=== PATIENT | male | born 1965 | race Caucasian/White ===

== ENCOUNTER 2019-06-05 11:16 | Emergency (ER) | payer OTHER ==
[~2019-06-05] VITALS: Ht 180.3 cm; Wt 172.4 kg
[2019-06-05 12:06] LABS: CALCIUM 8.5 mg/dL (8.5-10.1); POTASSIUM 3.9 mmol/L (3.5-5.1)
[2019-06-05 12:08] LABS: ABSOLUTE NEUTROPHILS 9.1 thou/uL (1.4-8.2); BASOPHILS 0.5 % (0.0-2.0); HEMATOCRIT 46.5 % (42.0-52.0); HEMOGLOBIN 15.8 gm/dL (14.0-18.0); LYMPHOCYTES 9.7 % (24.0-44.0); MCH 33.4 pg (26.0-34.0); MCV 98.2 fL (80.0-100.0); MONOCYTES 5.8 % (1.0-8.0); PLATELET COUNT 311 thou/uL (150-400); RBC 4.73 mil/uL (4.50-6.00); RDW 12.7 % (10.5-14.5); WBC 11.4 thou/uL (4.0-11.0)
[2019-06-05 12:12] LABS: ALBUMIN 3.4 g/dL (3.4-5.0); DIRECT BILIRUBIN 0.2 mg/dL (<0.1-0.2); TOTAL PROTEIN 7.7 g/dL (6.4-8.2)
[2019-06-05] MEDS ORDERED: PROAIR HFA8.5 GM INH (12:23)
[2019-06-05] MEDS ORDERED: LASIX 40 MG TAB40 MG PO ×2 (15:46→15:51)
[2019-06-05] MEDS ORDERED: BACTRIM DS TAB1 EACH PO ×2 (15:46→15:51)
[2019-06-05 16:10] VITALS: BP 151/78
== END 2019-06-05 16:10 | disposition home or self-care (01) ==
LOC: ER 11:16
PROVIDERS: Emergency Medicine
DX: I89.0 Lymphedema, not elsewhere classified (principal); L03.116 Cellulitis of left lower limb; L03.115 Cellulitis of right lower limb; I10 Essential (primary) hypertension; E78.5 Hyperlipidemia, unspecified; J45.909 Unspecified asthma, uncomplicated; Z79.899 Other long term (current) drug therapy

== ENCOUNTER 2019-06-07 16:39 | Inpatient (IN) | payer OTHER ==
[~2019-06-07] VITALS: Ht 180.3 cm; Wt 183.3 kg
--- NOTE | ~2019-06-07 | HC ---
[facility] [place] [address] CONSULTATION Name: JOVANNY SPIVEY Room #: 444-P [facility] IN M.R.#: [id number] Admission: 06/07/19 Attend Phys: Kevin Ridley MD Discharge: 06/10/19 Date of : 67 Report #: [id number] THIS REPORT FOR: cc: BHAVNA - No family physician/PCP BHAVNA - No family physician/PCP Hernandez Khoury MD ~ CC: Kevin Ridley [facility] physician/PCP DATE OF SERVICE: 06/09/2019 CHIEF COMPLAINT: Bilateral lower extremity edema with bullae on the right foot. HISTORY OF PRESENT ILLNESS: This is a 54-year-old male patient admitted to the hospital with blistering and cellulitis to bilateral lower extremities. He was treated with intravenous antibiotic therapy, has been here for a couple of days. I have been asked to see him with regard to this. PAST MEDICAL HISTORY: Significant for hypertension, asthma, and hyperlipidemia. SOCIAL HISTORY: The patient admits to occasional alcohol use. Chews tobacco. FAMILY HISTORY: Noncontributory. MEDICATIONS: Includes Lasix, Bactrim, and albuterol. ALLERGIES: No known drug allergies. REVIEW OF SYSTEMS: CONSTITUTIONAL: The patient denies fever, chills, or weight loss. NEUROLOGICAL: The patient denies focal weakness, numbness or tingling. EYES: The patient denies visual changes, redness, or drainage. ENT: The patient denies earache, nasal drainage, or sore throat. CARDIOVASCULAR: The patient denies chest pain, palpitations or diaphoresis. PULMONARY: The patient denies cough or sore throat. GASTROINTESTINAL: The patient denies nausea, vomiting, diarrhea or abdominal pain. ORTHOPEDIC: The patient complains of pain, swelling and blistering of the right lower extremity. Other systems in a 14-point review of systems are negative. PHYSICAL EXAMINATION: VITAL SIGNS: At this time include temperature 36.9, pulse 88, respiratory rate 18, blood pressure 164/86. GENERAL: This is a well-developed male patient who appears to be in no distress. [address] [address] CONSULTATION Name: JOVANNY SPIVEY Room #: 444-P [facility] IN M.R.#: [id number] Admission: 06/07/19 Attend Phys: Kevin Ridley MD Discharge: 06/10/19 Date of : 67 Report #: [id number] HEENT: Head normocephalic. Nose and throat are clear. NECK: Supple. LUNGS: Clear. HEART: ___. ABDOMEN: Soft. Bowel sounds are present. Examination of the abdomen is obese, nontender. EXTREMITIES: Lower extremities demonstrate erythema and 3+ edema bilaterally. There are multiple bullae on the dorsal aspect of the right foot. They are all intact and not appear to be abscessed at this time. LABORATORY DATA: Include white blood cell count of 8.4 with hemoglobin of 16.1. Sodium 138, potassium 3.7, chloride 101, CO2 of 30, BUN 14, creatinine 1.3, glucose of 131. Albumin is 3.2. CLINICAL IMPRESSION: 1. Cellulitis, bilateral lower extremities and feet, right greater than left. 2. Lymphedema, bilateral lower extremities 3. Multiple bullae on the right foot. 4. Morbid obesity. 5. Hyperglycemia. RECOMMENDATIONS: We will consult occupational therapy for MLD and compression bandaging, Xeroform, ABD to the bullae, 0.1 triamcinolone cream to the areas of pruritus on the right lower leg, AmLactin dry skin nutrition. I appreciate being asked to see him in consultation. By: 49 48 Hernandez Khoury MD /nt
[~2019-06-07 16:39] MED LIST: BACTRIM DS TAB1 EACH PO; LASIX 40 MG TAB40 MG PO; PROAIR HFA8.5 GM INH
[2019-06-07 16:49] VITALS: BP 145/85
--- NOTE | 2019-06-07 18:13 | NUR ---
LAB CALLED FOR BLOOD COLLECTION
[2019-06-07 18:47] LABS: BASOPHILS 0.8 % (0.0-2.0); EOSINOPHILS 5.1 % (0.0-3.0); HEMOGLOBIN 15.6 gm/dL (14.0-18.0); LYMPHOCYTES 14.1 % (24.0-44.0); MCH 33.5 pg (26.0-34.0); MCHC 33.9 g/dL (28.0-37.0); MCV 98.8 fL (80.0-100.0); MONOCYTES 7.5 % (1.0-8.0); PLATELET COUNT 278 thou/uL (150-400); POLYS 72.5 % (36.0-66.0); RBC 4.65 mil/uL (4.50-6.00); RDW 12.6 % (10.5-14.5); WBC 9.7 thou/uL (4.0-11.0)
[2019-06-07 19:48] LABS: CALCIUM 8.3 mg/dL (8.5-10.1); CREATININE 1.3 mg/dL (0.7-1.3); POTASSIUM 3.6 mmol/L (3.5-5.1)
[2019-06-07 19:54] LABS: ALBUMIN 3.3 g/dL (3.4-5.0); DIRECT BILIRUBIN 0.1 mg/dL (<0.1-0.2); TOTAL PROTEIN 7.3 g/dL (6.4-8.2)
[2019-06-07 21:14] VITALS: BP 145/85
[2019-06-07 21:46] VITALS: BP 137/86
[2019-06-07 22:40] LABS: CHOLESTEROL 148 mg/dL (<200); HDL CHOLESTEROL 22 mg/dL (>40); LDL CHOLESTEROL 102 mg/dL (<100); SERUM ASSESSMENT Clear; TC:HDL 6.7 Ratio (Not establshd); TRIGLYCERIDE 122 mg/dL (<150); VLDL 24 mg/dL (<40)
--- NOTE | 2019-06-07 22:42 | NUR ---
Pt. admitted from the emergency room accompanied by staff. He is alert and oriented and offers no complaints at this time. Admission assessment and history is completed. Admitted with bilateral lower leg cellulitis.
[2019-06-08 05:03] VITALS: BP 156/92
[2019-06-08 07:15] VITALS: BP 148/85
[2019-06-08 08:37] LABS: HEMATOCRIT 47.4 % (42.0-52.0); HEMOGLOBIN 16.1 gm/dL (14.0-18.0); MCH 33.6 pg (26.0-34.0); MCHC 33.9 g/dL (28.0-37.0); MCV 99.1 fL (80.0-100.0); RBC 4.78 mil/uL (4.50-6.00); RDW 12.7 % (10.5-14.5); WBC 8.4 thou/uL (4.0-11.0)
[2019-06-08 08:49] LABS: ANION GAP 6 mmol/L (7-16); BUN 15 mg/dL (7-18); CALCIUM 8.3 mg/dL (8.5-10.1); CHLORIDE 98 mmol/L (98-107); CO2 30 mmol/L (21-32); CREATININE 1.3 mg/dL (0.7-1.3); GLUCOSE 98 mg/dL (74-106); POTASSIUM 3.8 mmol/L (3.5-5.1); SODIUM 134 mmol/L (136-145)
--- NOTE | 2019-06-08 10:17 | NUR ---
RD consult received. Pt with BMI 56.4, class III extreme obesity. Admitted with bilateral lower extremity cellulitis. HDL 22, LDL 102. Pt started on heart healthy diet. Upon visit, pt showing lack interest in conversation. Appetite is good and voiced no questions regarding diet. Low nutrition risk
--- NOTE | 2019-06-08 12:13 | NUR ---
PT ADMITTED RELATED TO CELLULITS LOWER LEGS. CM REVIEWED CHART AND SPOKE WITH CARE TEAM. CM CALLED AND SPOKE WITH PT THIS DAY. PT APPEARED TO BE A&O X4. CM ROLE INTRODUCED. PT INDICATED HE HAD BEEN STAYING IN AN EXTENDED STAY HOTEL POST ANESTHESIA CARE UNIT NURSE. PT INIDCATED HE HAD BEEN INDEPENDENT WITH GAIT AND ADLS POST ANESTHESIA CARE UNIT NURSE. PT INDICATED HE HAD BEEN WORKING BUT HE ISN'T CURRENTLY DUE TO COVID-19. PT HAS NO INSURANCE AND IS CURRENTLY PATIENT PAY. PT INDICATED NO HH OR OP THRAPY HISTORY. PT INDICATED HIS PCP IS DR. BALLESTEROS IN [place]. PT INDICATED HE PLANS TO RETURN TO THE EXTENDED STAY HOTEL UPON DC. PT STATED HE WOULD NEED ANY NEW SCRIPTS PRICES OUT PRIOR TO DISHARGE TO SEE IF HE CAN AFFORD MEDS. CM TO FOLLOW INDICATED WITH DC PLANNING.
[2019-06-08 13:30] LABS: TROPONIN-I <0.06 ng/mL (<0.06)
[2019-06-08 15:36] VITALS: BP 126/76
[2019-06-08 18:32] LABS: URINE BILIRUBIN NEGATIVE (Negative); URINE BLOOD NEGATIVE (Negative); URINE CLARITY CLEAR; URINE COLOR YELLOW; URINE GLUCOSE-RANDOM* NEGATIVE (Negative); URINE KETONES NEGATIVE (Negative); URINE LEUKOCYTES-REFLEX NEGATIVE (Negative); URINE NITRITE-REFLEX NEGATIVE (Negative); URINE PROTEIN (DIPSTICK) NEGATIVE (Negative); URINE SPECIFIC GRAVITY <= 1.005 (1.005-1.035); URINE UROBILINOGEN 0.2 E.U./dl (0.2-1.0)
[2019-06-08 19:06] VITALS: BP 150/72
--- NOTE | 2019-06-08 19:07 | NUR ---
PT A&OX4. AMBULATES SELF IN ROOM. BILAT LOWER EXTREMITIES HAS CELLULITIS WITH GROSS EDMA. IV INTACT IN L CHEST. NO C/O PAIN THROGHOUT THE DAY. STATES NO NEED TO COTACT FAMILY HE IS IN CONTACT WITH THEM.
--- NOTE | 2019-06-09 03:48 | NUR ---
RECIEVED CARE OF THIS PAITENT AT 1900. PATIENT SLEPT IN CHAIR. PAIN AT A 2/10. HAS SORES AND BLISTERS ALL OVER ALL EXT. LOWER EXT HAS 3+ EDEMA. IV IN L BREAST. UP AD ZAIDA. SLEPT MOST OF NIGHT.
[2019-06-09 04:05] VITALS: BP 137/72
[2019-06-09 05:47] LABS: ALBUMIN 3.2 g/dL (3.4-5.0); CALCIUM 8.3 mg/dL (8.5-10.1); CREATININE 1.3 mg/dL (0.7-1.3); MAGNESIUM 2.3 mg/dL (1.8-2.4); POTASSIUM 3.7 mmol/L (3.5-5.1); TOTAL BILIRUBIN 0.6 mg/dL (<0.1-1.0); TOTAL PROTEIN 7.4 g/dL (6.4-8.2)
[2019-06-09 07:14] VITALS: BP 151/72
--- NOTE | 2019-06-09 08:42 | 2DMMODE ---
[facility] [place] [address] 2 D/M-MODE ECHOCARDIOGRAM Name: JOVANNY SPIVEY Room #: 444-P ADM IN M.R.#: [id number] Admission: 06/07/19 Attend Phys: Kevin Ridley MD Discharge: Date of : 67 Report #: [id number] THIS REPORT FOR: cc: FAM - No family physician/PCP FAM - No family physician/PCP Avery Simms MD [facility] ~ APPROVED REPORT Study performed: 06/09/2019 07:55:20 EXAM: Comprehensive 2D, Doppler, and color-flow Echocardiogram Patient Location: Bedside Room #: 444 Status: routine BSA: 2.84 HR: 76 bpm BP: 137/72 mmHg Rhythm: NSR Other Information Study Quality: Fair/Poor parasternal window Technically limited study due to morbid obesity. Indications Bilateral leg swelling (Cellulitis) Hx: HTN, HLP. 2D Dimensions RVDd: 38.53 mm IVSd: 14.00 (7-11mm) LVDd: 46.20 mm PWd: 14.00 (7-11mm) LVDs: 34.88 (25-40mm) Volumes Left Atrial Volume (Systole) Single Plane 4CH: 47.57 mL Single Plane 2CH: 84.05 mL LA ESV Index: 25.00 mL/m2 Aortic Valve AoV Peak Zachary.: 1.69 m/s AO Peak Gr.: 11.42 mmHg LVOT Max P.76 mmHg LVOT Max V: 1.30 m/s [facility] [address] [place] [address] 2 D/M-MODE ECHOCARDIOGRAM Name: JOVANNY SPIVEY Room #: 444-P ADM IN ..#: [id number] Admission: 06/07/19 Attend Phys: Kevin Ridley MD Discharge: Date of : 67 Report #: [id number] Mitral Valve E/A Ratio: 0.9 MV Decel. Time: 279.09 ms MV E Max Zachary.: 0.69 m/s MV A Zachary.: 0.78 m/s MV PHT: 80.94 ms IVRT: 72.66 ms Pulmonary Valve PV Peak Zachary.: 1.02 m/s PV Peak Gr.: 4.13 mmHg Tricuspid Valve RAP Estimate: 5.00 mmHg Left Ventricle The left ventricle is normal size. LV wall motion is grossly normal. Mild concentric left ventricular hypertrophy. Left ventricular systolic function is normal. LVEF is 60-65%. Mild diastolic dysfunction is present (impaired relaxation pattern). Right Ventricle Right ventricle is not well visualized. Atria The left atrium size is normal. The right atrium size is normal. Aortic Valve The aortic valve is not well visualized. No aortic regurgitation is present. There is no aortic valvular stenosis. Mitral Valve The mitral valve is normal in structure. There is no mitral valve regurgitation noted. No evidence of mitral valve stenosis. Tricuspid Valve Tricuspid valve is not well visualized. Unable to detect tricuspid regurgitation. Unable to assess PA pressure. Pulmonic Valve Pulmonic valve is not well visualized. Great Vessels The aortic root is not well visualized. Ascending aorta is not well visualized. IVC is normal in size and collapses >50% with [facility] [address] [place] [address] 2 D/M-MODE ECHOCARDIOGRAM Name: JOVANNY SPIVEY Room #: 444-P [facility] IN [facility]#: [id number] Admission: 06/07/19 Attend Phys: Kevin Ridley MD Discharge: Date of : 67 Report #: [id number] inspiration. Pericardium There is no pericardial effusion. <Conclusion> Technically difficult study Left ventricular systolic function is normal. LV wall motion is grossly normal. LVEF is 60-65%. Mild diastolic dysfunction The aortic valve is not well visualized. No aortic regurgitation or stenosis. The mitral valve is normal in structure. No mitral valve regurgitation. Unable to assess pulmonary artery pressure. There is no pericardial effusion. <ELECTRONICALLY SIGNED> By: Avery Simms MD, [facility] 06/09/19839 9 9 Avery Simms MD, FACC /INF
[2019-06-09 15:42] VITALS: BP 145/83
--- NOTE | 2019-06-09 19:03 | NUR ---
VSS-AFEBRILE. LUNGS CLEAR-ROOM AIR. C/O BURNING AND SHARP PAIN WITH BILATERAL LOWER EXTREMITIES. PAIN IS PARTIALLY RELIEVED WITH IV PAIN MEDICATIONS. NEW IV PLACED IN LEFT FA-TOLERATED INSERTION WELL. LYMPHADEMA WRAPS IN PLACE-TOLERATED PLACEMENT WELL. CALL APPROPRIATELY FOR ANY NEEDED ASSISTANCE.
[2019-06-09 20:03] VITALS: BP 136/65
--- NOTE | 2019-06-10 04:46 | NUR ---
Assumed pt care at 1900. Pt's A/OX4, VSS.Up ad luca in room w/o any difficulties. Medicated for pain with Morphine with relief reported. Lymphedema wraps in place to BLE. This morning pt c/o feeling itchy underneath dressings so bad, order obtained for Benadryl ordered X1 and administered awaiting effectiveness. Sitting up on the cahair w/o any distress, will continue to monitor pt.
[2019-06-10 05:20] VITALS: BP 129/79
[2019-06-10 07:20] VITALS: BP 141/80
[2019-06-10] MEDS ORDERED: TRIAMCINOLONE A15 G3 TOP (12:07)
[2019-06-10] MEDS ORDERED: ALPRAZOLAM 0.50.5 M1 PO (12:07)
[2019-06-10] MEDS ORDERED: LIPITOR40 MG PO (12:07)
[2019-06-10] MEDS ORDERED: ACETAMINOPHEN325 M1 PO (12:07)
[2019-06-10] MEDS ORDERED: AMMONIUM LACTA226 GM TOP (12:07)
[2019-06-10] MEDS ORDERED: LASIX 40 MG TAB40 M2 PO (12:07)
[2019-06-10] MEDS ORDERED: NORCO 5-325 TA1 EAC2 PO (12:07)
[2019-06-10] MEDS ORDERED: BACTRIM DS TAB1 EAC1 PO (12:07)
[2019-06-10 12:42] VITALS: BP 141/80
--- NOTE | 2019-06-10 14:10 | NUR ---
Assumed care of pt at 0700. Pt a&ox4. Up ad luca. Legs wrapped by lymphedema tech. Denies pain. Pt will discharge to home. Pt's scripts send to hospital pharmacy. Call light within reach. Will continue to monitor.
[2019-06-10 15:13] VITALS: BP 164/86
[2019-06-10 16:18] VITALS: BP 141/80
--- NOTE | 2019-06-10 16:20 | NUR ---
PT NEEDING LYMPHEDEMA THERAPY UPON DC. CM SENT REFERRALS TO [facility], [facility], [facility], AND [facility] AND NONE CAN OFFER AVA VISITS FOR LYMPHADEMA OR AVA VISITS AT ALL. CM SENT REFERRAL TO [facility] TO SEE IF THEY COULD PROVIDE SOME AVA NURSING VISITS. CM AWAITING RESPONSE. PT'S MEDS TO BE VOUCHERED AT OP PHARMACY FOR $42.04. PT IS TO DISCHARGE BACK TO HIS EXTENDED STAY HOTEL AT [address] [place]. CM TO REACH OUT TO OP THERAPY DEPARTMENT HERE AT [facility] TO SE IF PT CAN COME ON OP BASIS FOR SERVICES ONCE THEY PARTIALLY OPEN NEXT WEEK. [facility] CAN'T ACCEPT.
== END 2019-06-10 17:38 | disposition home health service (06) | DRG 602 ==
LOC: ER 16:39 → EROBS 20:27 → 4S 20:27
PROVIDERS: Emergency Medicine; Internal Medicine; Nurse Practitioner Family; ADMIT Hospitalist
DX: L03.115 Cellulitis of right lower limb (principal); I50.33 Acute on chronic diastolic (congestive) heart failure; Z68.43 Body mass index [BMI] 50.0-59.9, adult; L03.116 Cellulitis of left lower limb; J45.909 Unspecified asthma, uncomplicated; E78.5 Hyperlipidemia, unspecified; R23.8 Other skin changes; E66.01 Morbid (severe) obesity due to excess calories; I11.0 Hypertensive heart disease with heart failure; R73.9 Hyperglycemia, unspecified; F17.210 Nicotine dependence, cigarettes, uncomplicated; S90.822A Blister (nonthermal), left foot, initial encounter; S90.821A Blister (nonthermal), right foot, initial encounter; X58.XXXA Exposure to other specified factors, initial encounter; Y93.89 Activity, other specified; Y92.89 Other specified places as the place of occurrence of the external cause; Y99.8 Other external cause status; G62.9 Polyneuropathy, unspecified; Z91.19 Patient's noncompliance with other medical treatment and regimen
CPT/HCPCS: 10195

== ENCOUNTER 2020-03-13 20:34 | Emergency (ER) | payer OTHER ==
[~2020-03-13] VITALS: Ht 180.3 cm; Wt 181.4 kg
[~2020-03-13 20:34] MED LIST changes: +ACETAMINOPHEN325 M1 PO; +ALPRAZOLAM 0.50.5 M1 PO; +AMMONIUM LACTA226 GM TOP; +BACTRIM DS TAB1 EAC1 PO; +LASIX 40 MG TAB40 M2 PO; +LIPITOR40 MG PO; +NORCO 5-325 TA1 EAC2 PO; +TRIAMCINOLONE A15 G3 TOP
[2020-03-13 21:05] LABS: ABSOLUTE NEUTROPHILS 7.8 thou/uL (1.4-8.2); BASOPHILS 0.5 % (0.0-2.0); HEMATOCRIT 45.4 % (42.0-52.0); HEMOGLOBIN 15.7 gm/dL (14.0-18.0); LYMPHOCYTES 9.1 % (24.0-44.0); MCH 33.9 pg (26.0-34.0); MCHC 34.7 g/dL (28.0-37.0); MCV 97.8 fL (80.0-100.0); MONOCYTES 6.8 % (1.0-8.0); PLATELET COUNT 307 thou/uL (150-400); POLYS 79.6 % (36.0-66.0); RBC 4.64 mil/uL (4.50-6.00); RDW 12.9 % (10.5-14.5); WBC 9.8 thou/uL (4.0-11.0)
[2020-03-13 21:11] LABS: BE(vivo) 2.8 mmol/L (-2 to +3); HCO3 21.7 mmol/L (22.0-26.0); PCO2 21.8 mmHg (35.0-45.0); PO2 100.7 mmHg (80.0-100.0); sO2 98.5 % (92.0-98.0)
[2020-03-13 21:12] LABS: pH 7.615 (7.360-7.450)
[2020-03-13 21:18] LABS: ANION GAP 14 mmol/L (7-16); BUN 19 mg/dL (7-18); CALCIUM 9.1 mg/dL (8.5-10.1); CHLORIDE 101 mmol/L (98-107); CO2 23 mmol/L (21-32); CREATININE 1.6 mg/dL (0.7-1.3); GLUCOSE 133 mg/dL (74-106); POTASSIUM 4.4 mmol/L (3.5-5.1); SODIUM 138 mmol/L (136-145)
[2020-03-13 21:26] LABS: ALBUMIN 3.5 g/dL (3.4-5.0); SGOT 29 U/L (15-37); SGPT 40 U/L (30-65); TOTAL BILIRUBIN 0.6 mg/dL (0.2-1.0); TROPONIN-I <0.06 ng/mL (<0.06)
[2020-03-14] MEDS ORDERED: AZITHROMYCIN 2250 MG PO (05:12)
[2020-03-14 05:52] VITALS: BP 101/48
--- NOTE | 2020-03-14 07:27 | EKG ---
[place] [address] [facility] [place] [address] ELECTROCARDIOGRAM REPORT Name: JOVANNY SPIVEY Room #: [facility] S[facility] Duenas#: [id number] Admission: 03/13/20 Attend Phys: Discharge: 03/14/20 Date of : 67 Report #: [id number] [facility] ED Test Date: 2020-03-13 Test Time: 20:48:23 Pat Name: JOVANNY SPIVEY Department: Room: Gender: M Motion Picture Cameraman: qamar : 1965 Requested By: Jamila Parks Order Number: [id number] MD: Garo Gutierrez Measurements Intervals [place] Rate: 110 P: 66 PA: 158 QRS: 83 QRSD: 105 T: 58 QT: 358 QTc: 485 Interpretive Statements Sinus tachycardia Low voltage, precordial leads Borderline prolonged QT interval Baseline wander in lead(s) V2 Compared to ECG 07/26/2001 19:51:18 Low QRS voltage now present T-wave abnormality no longer present Possible ischemia no longer present Electronically Signed On 03-14-2020 7:27:06 [employer] MANAGER by Garo Gutierrez [email or web address] <ELECTRONICALLY SIGNED> By: Garo Gutierrez MD, [facility] 03/14/20 0727 47 47 Garo Gutierrez MD, [facility] /[facility]
== END 2020-03-14 05:57 | disposition home or self-care (01) ==
LOC: ER 20:34
PROVIDERS: Physician Assistant
DX: J18.9 Pneumonia, unspecified organism (principal); I10 Essential (primary) hypertension; J45.909 Unspecified asthma, uncomplicated; E78.5 Hyperlipidemia, unspecified; Z79.899 Other long term (current) drug therapy; Z20.828 Contact with and (suspected) exposure to other viral communicable diseases

== ENCOUNTER 2020-03-19 22:22 | Inpatient (IN) | payer OTHER ==
[~2020-03-19] VITALS: Ht 180.3 cm; Wt 181.4 kg
[~2020-03-19 22:22] MED LIST changes: +AZITHROMYCIN 2250 MG PO
[2020-03-19 22:23] VITALS: BP 140/82
[2020-03-19 23:14] LABS: ABSOLUTE NEUTROPHILS 10.7 thou/uL (1.4-8.2); BASOPHILS 0.3 % (0.0-2.0); HEMATOCRIT 45.1 % (42.0-52.0); HEMOGLOBIN 15.7 gm/dL (14.0-18.0); LYMPHOCYTES 7.3 % (24.0-44.0); MCH 33.8 pg (26.0-34.0); MCHC 34.8 g/dL (28.0-37.0); MCV 97.1 fL (80.0-100.0); MONOCYTES 6.8 % (1.0-8.0); PLATELET COUNT 311 thou/uL (150-400); POLYS 85.6 % (36.0-66.0); RBC 4.64 mil/uL (4.50-6.00); WBC 12.5 thou/uL (4.0-11.0)
[2020-03-19 23:30] LABS: CALCIUM 8.5 mg/dL (8.5-10.1); CREATININE 1.6 mg/dL (0.7-1.3)
[2020-03-19 23:36] LABS: ALBUMIN 3.4 g/dL (3.4-5.0); TOTAL PROTEIN 7.7 g/dL (6.4-8.2)
[2020-03-19 23:39] LABS: POTASSIUM 5.2 mmol/L (3.5-5.1)
[2020-03-20 02:46] VITALS: BP 155/81
[2020-03-20] MEDS ORDERED: NF (02:46)
[2020-03-20 03:10] VITALS: BP 147/66
[2020-03-20 03:42] VITALS: BP 148/72
--- NOTE | 2020-03-20 06:44 | NUR ---
PT ADMIITED FROM ER R/O COVID AND CAP. ALERT AND ORIENTED X4 VSS. AFEBRILE . SAT 98% ON RA. LUNGS SOUND DIMINSHED PRESENTLY AND UNLABORED ON RA. BSC PROVIDED TO PT. EXPLAINED FALL PRECAUTIONS. PT STATES HE CAN AMBULATE TO BR REFUSED URINAL DUE TO HAS BM WHEN HE URINATES. NS INFUSING AT 75 R HAND.
--- NOTE | 2020-03-20 07:00 | EKG ---
[address] [place] [place] [address] ELECTROCARDIOGRAM REPORT Name: JOVANNY SPIVEY Room #: 363-P ADM IN M.R.#: [id number] Admission: 03/20/20 Attend Phys: Edgar Martinez MD Discharge: Date of : 67 Report #: [id number] [facility] ED Test Date: 2020-03-19 Test Time: 22:47:04 Pat Name: JOVANNY SPIVEY Department: Room: 363 Gender: M Transportation Assistant: jeane lowe rn : 1965 Requested By: Arpan Moct[place]uma Order Number: [id number] MD: Garo Gutierrez Measurements Intervals [place] Rate: 102 P: 58 CA: 159 QRS: 71 QRSD: 108 T: 38 QT: 358 QTc: 467 Interpretive Statements Sinus tachycardia Borderline low voltage, extremity leads Baseline wander in lead(s) V2 Compared to ECG 03/13/2020 20:48:23 No significant changes Electronically Signed On 03-20-2020 7:00:02 [employer] by Garo Gutierrez [email or web address] <ELECTRONICALLY SIGNED> By: Garo Gutierrez MD, [facility] 03/20/20 0700 46 46 Garo Gutierrez MD, FAC /EPI
[2020-03-20 08:01] VITALS: BP 110/58
--- NOTE | 2020-03-20 10:33 | NUR ---
Pt with initial risk for 24-33 lb wt loss and poor appetite. Admit for BLE cellulitis. Extreme class III obesity, BMI 55.8. Unable to visit pt due to isolation precautions, and pt did not answer phone. Wts from [facility] reviewed, 400 lb since 06/2019. Usually eats well previous admissions. Has oral supplement ordered-will continue these until able to interview pt, but may likely not need if appetite is adequate. Low nutrition risk
--- NOTE | 2020-03-20 14:00 | NUR ---
54-year-old male presenting to the ER with worsening shortness of breath on 03-19-20. COVID NEGATIVE per PCR on 03-19-20. Recently here on 03-13 for pneumonia found in ED and sent home on PO Abt's. Currently lives at home with family and does not use any assistive devices. M The patient has been admitted for Pneumonia/dyspnea, JESU with hyperkalemia, HTN and bilateral lower extremity cellulitis. Remains as of 03-20-20 on RA with sats above 95% and ambulates to BR without assist. Has been placed on [employer] antibiotic coverage with Rocephin and Azithromycin along with steroid and found to be influenza negative. Last CM contact on lists authorized contact of [employer] [facility] at [phone]. Noted as patient pay in June of 2019 and per this admission. In June of 2019 CM vouchered for medications and was able to ascertain a few [facility] Registrations still notes patient home address as [facility]. CM to follow for discharge needs.
[2020-03-20 14:49] VITALS: BP 131/78
--- NOTE | 2020-03-20 18:29 | NUR ---
ASSUMED PATIENT CARE AT 0700. A/O X4 DEPRESSED. C/O NAUSEA NO VOMIT. TOLERATED ON RA. UP AD ZAIDA. SLOWLY TOWARDS POC GOALS.
[2020-03-20 19:56] VITALS: BP 135/74
[2020-03-21 04:14] VITALS: BP 103/57
[2020-03-21 07:00] LABS: HEMATOCRIT 44.1 % (42.0-52.0); HEMOGLOBIN 14.4 gm/dL (14.0-18.0); MCH 32.8 pg (26.0-34.0); MCHC 32.7 g/dL (28.0-37.0); MCV 100.5 fL (80.0-100.0); RBC 4.39 mil/uL (4.50-6.00); RDW 13.4 % (10.5-14.5); WBC 14.7 thou/uL (4.0-11.0)
[2020-03-21 07:11] LABS: CALCIUM 9.2 mg/dL (8.5-10.1); CREATININE 1.5 mg/dL (0.7-1.3); MAGNESIUM 2.3 mg/dL (1.8-2.4); POTASSIUM 4.6 mmol/L (3.5-5.1)
[2020-03-21 08:00] VITALS: BP 153/63
--- NOTE | 2020-03-21 08:01 | NUR ---
PT VSS OVERNIGHT. 02 SATURATIONS WERE IN 90'S ON ROOM AIR AND PT SLEPT IN CHAIR ALL NIGHT. PT WAS COVID NEGATIVE. YANNI Bagley GAVE PERMISSION TO DC ENHANCED PRECAUTIONS. IT WAS DETERMINED THAT PT COULD TRANSFER TO A NON COVID FLOOR AND WAS MOVED TO . REPORT GIVEN AND PT MOVED AT APPROX 0630.
[2020-03-21 11:15] VITALS: BP 132/68
--- NOTE | 2020-03-21 12:06 | HC ---
[facility] [place] [address] CONSULTATION Name: JOVANNY SPIVEY Room #: 208-P [facility] IN ..#: [id number] Admission: 03/20/20 Attend Phys: Sundar Perkins MD Discharge: Date of : 67 Report #: [id number] THIS REPORT FOR: cc: FAM - No family physician/PCP FAM - No family physician/PCP Hernandez Khoury MD ~ DATE OF SERVICE: 03/20/2020 CHIEF COMPLAINT: Bilateral lower extremity edema and dermatitis. HISTORY OF PRESENT ILLNESS: This is a 54-year-old male patient who presented to the Emergency Department with worsening shortness of breath. He was found to have pneumonia recently. He was prescribed the antibiotics as an outpatient, but did not get them filled. His symptoms have worsened and he has been started on intravenous antibiotics. He has lower extremity edema and chronic lymphedema and stasis dermatitis. I have been asked to see him in this regard. The patient denies pain associated with this area and states that it is typically very pruritic. PAST MEDICAL HISTORY: Positive for morbid obesity, hypertension, hyperlipidemia and asthma. SOCIAL HISTORY: The patient drinks twice per week. He is a lifelong smoker. FAMILY HISTORY: Unknown as the patient is adopted. ALLERGIES: No known drug allergies. MEDICATIONS: Include atorvastatin, alprazolam, furosemide, albuterol, atorvastatin. REVIEW OF SYSTEMS: CONSTITUTIONAL: The patient denies fever, chills or weight loss. NEUROLOGICAL: The patient denies focal weakness, numbness or tingling. EYES: The patient denies visual changes, redness, or drainage. ENT: The patient denies earache, nasal drainage or sore throat. CARDIOVASCULAR: The patient denies chest pain, palpitation or diaphoresis. PULMONARY: The patient complains of shortness of breath with cough and some sputum production. GASTROINTESTINAL: The patient denies nausea, vomiting, diarrhea or abdominal pain. ORTHOPEDIC: The patient complains of pruritic patches on his lower extremities, more on the right than on the left with lower extremity edema. Other systems in a 14-point review of systems are negative. [address] [address] CONSULTATION Name: JOVANNY SPIVEY Room #: 208-P [facility] IN M.R.#: [id number] Admission: 03/20/20 Attend Phys: Sundar Perkins MD Discharge: Date of : 67 Report #: [id number] PHYSICAL EXAMINATION: VITAL SIGNS: At this time include temperature 37.1, pulse ____, respiratory rate 18, blood pressure 131/78. GENERAL: This is a well-developed male patient appears to be in no acute distress. HEENT: Head normocephalic. Nose and throat are clear. NECK: Supple. LUNGS: Diminished. HEART: Regular rhythm. ABDOMEN: Soft, bowel sounds present. EXTREMITIES: Lower extremities demonstrate 2+ edema. He has venous stasis dermatitis medially on both legs, more on the right than on the left, and rather appeared to be overtly infected. NEUROLOGIC: The patient is alert, oriented and appropriate. LABORATORY DATA: Include sodium of 130, potassium 5.2, chloride 98, CO2 of 17, BUN 28, creatinine 1.6, glucose 121, total bilirubin 1.0. AST is 34, ALT is 34, albumin is 3.4. White blood cell count 12.5 with a hemoglobin of 15.7. CLINICAL IMPRESSION: 1. Lymphedema, bilateral lower extremities with stasis dermatitis, bilateral lower extremities. 2. Community-acquired pneumonia. 3. Morbid obesity. 4. Hyperlipidemia. 5. Hypertension. 6. History of tobaccoism. RECOMMENDATIONS: At this point in time, we will recommend lymphedema therapy. We will ask the lymphedema therapist from OT to see him and provide compression. We will hold off on a moisturizer at this time as the patient is concerned that anything moist may worsen his ulceration. We will see how he does with simple compression and may add some triamcinolone as needed. Continue medical management of his pneumonia and underlying chronic medical conditions. I appreciate being asked to see him in consultation. <ELECTRONICALLY SIGNED> By: Hernandez Khoury MD 03/21/20 1206 1715 [id number] Hernandez Khoury MD /nt
[2020-03-21 12:08] VITALS: BP 132/68
[2020-03-21 17:15] VITALS: BP 109/59
--- NOTE | 2020-03-21 17:15 | NUR ---
[employer] liason here to screen the [place]. He has been working prior to admission and does not have a permenent disability therefore he will not qualify. Pt is up ad luca in his room. Awaiting additional imput regarding wound care needs at dc. CM can help vouch po atb at dc if needed. Uncertain if aleksey visits are an option as he had had them thru [facility] in the past.
--- NOTE | 2020-03-21 20:08 | NUR ---
ASSUMED CARE OF PT AT SHIFT CHANGE. ASSESSMENTS CHARTED. MEDS GIVEN PER APR. PT A&OX4, NO C/O PAIN OR DISTRESS DURING SHIFT. WOUND CARE DRESSING BLE. WILL CONTINUE TO MONITOR FOR CHANGE AND FOLLOW POC.
[2020-03-21 21:24] VITALS: BP 107/60
--- NOTE | 2020-03-22 03:40 | NUR ---
assumed pt care at 1900, pt is awake alert and orientedx4, reports being anxious, medications given as per apr, assessments as charted, denies pain or sob, remains on room air, remains on iv antibiotics, no reactions noted, independent, denies having concerns, will continue to monitor and follow poc
[2020-03-22 05:00] VITALS: BP 112/68
[2020-03-22 07:54] VITALS: BP 133/63
[2020-03-22] MEDS ORDERED: PREDNISONE 10 M10 M1 PO (08:41)
[2020-03-22] MEDS ORDERED: PROAIR HFA8.5 GM INH (08:41)
[2020-03-22] MEDS ORDERED: CEFDINIR300 MG PO (08:41)
[2020-03-22 11:12] VITALS: BP 123/77
[2020-03-22 13:50] VITALS: BP 132/68
--- NOTE | 2020-03-22 13:53 | NUR ---
Pt dcing today. Scripts vouchered for 30 days supply for a total of $49.06.
--- NOTE | 2020-03-22 13:55 | NUR ---
PT ALERT AND ORIENTED X4. PT INDEPENDENT WITH DAILY ACTIVITIES.PT WAS GIVEN HIS PRESCIPTION AND TAUGHT ABOUT APPLYING AMLACTIN IN HIS LOWER EXTREMITIES. PT COMPLAINING OF ANXIETY AND WAS GIVEN LORAZEPAM PO.
[2020-03-22 14:00] VITALS: BP 132/68
[2020-03-22 14:01] VITALS: BP 132/68
== END 2020-03-22 14:43 | disposition home or self-care (01) | DRG 194 ==
LOC: ER 22:22 → EROBS 03-20 02:27 → 3W 03-20 02:27 → 2N 03-21 07:22
PROVIDERS: Emergency Medicine; Nurse Practitioner Family; ADMIT Hospitalist; ATTEND Hospitalist
DX: J18.9 Pneumonia, unspecified organism (principal); N17.9 Acute kidney failure, unspecified; L03.116 Cellulitis of left lower limb; L03.115 Cellulitis of right lower limb; Z68.43 Body mass index [BMI] 50.0-59.9, adult; I10 Essential (primary) hypertension; J45.909 Unspecified asthma, uncomplicated; E78.5 Hyperlipidemia, unspecified; E66.01 Morbid (severe) obesity due to excess calories; I87.2 Venous insufficiency (chronic) (peripheral); F17.210 Nicotine dependence, cigarettes, uncomplicated; Z20.822 Contact with and (suspected) exposure to COVID-19; E87.5 Hyperkalemia; Z71.6 Tobacco abuse counseling; Z79.899 Other long term (current) drug therapy
CPT/HCPCS: 10081; 10879